=== PATIENT | male | born 1990 | race African-American/Black ===

== ENCOUNTER 2017-11-15 07:11 | Emergency (ER) | payer OTHER ==
[~2017-11-15] VITALS: Ht 165.1 cm; Wt 56.7 kg
[2017-11-15] MEDS ORDERED: NOHOMEMEDICATIONS (07:20)
[2017-11-15] MEDS ORDERED: ALBUTEROL2.5 MG/3 M INH (07:28)
[2017-11-15] MEDS ORDERED: PREDNISONE 20 M20 M1 PO (07:28)
[2017-11-15 07:59] VITALS: BP 147/87
--- NOTE | 2017-11-15 10:40 | EKG ---
[place] [address] ELECTROCARDIOGRAM REPORT Name: DHIRAJ SMYTH Room: [facility]#: [id number] Admission: 11/15/17 Attend Phys: Discharge: 11/15/17 Date of : 88 Report #: [id number] THIS REPORT FOR: //name// [facility] ED Test Date: 2017-11-15 Test Time: 07:16:22 Pat Name: DHIRAJ SMYTH Department: Room: Gender: M Issuing Operator: Romario VIEYRA : 1990 Requested By: Gilberto Rouse Order Number: [id number] Juice MD: Archie Rabago Measurements Intervals [place] Rate: 82 P: 15 MT: 146 QRS: 43 QRSD: 92 T: 4 QT: 381 QTc: 445 Interpretive Statements Sinus rhythm Borderline T abnormalities, inferior leads No previous ECG available for comparison Electronically Signed On 11-15-2017 10:40:42 CDT by Archie Rabago [email or web address] <ELECTRONICALLY SIGNED> By: Archie Rabago MD, FACC 11/15/17 1040 0716 0716 Archie Rabago MD, FACC /EPI
== END 2017-11-15 07:59 | disposition home or self-care (01) ==
LOC: M.ERS 07:11
DX: J45.901 Unspecified asthma with (acute) exacerbation (principal); I10 Essential (primary) hypertension; F17.210 Nicotine dependence, cigarettes, uncomplicated